=== PATIENT | female | born 1930 | race Caucasian/White ===

== ENCOUNTER 2018-08-17 13:32 | Emergency (ER) | payer MEDICARE, OTHER ==
[~2018-08-17] VITALS: Ht 147.3 cm; Wt 71.0 kg
[~2018-08-17 13:32] MED LIST: BENICAR20 MG OR; DIOVAN80 MG; DIOVAN80 MG PO; KLOR-CON 1010 MEQ OR; LEVOTHYROXIN75 MC1 PO; LIPITOR10 MG OR; MULT VITAMI1 PO; SIMVASTATIN20 MG PO; VENLAFAXINE HCL75 M1 PO
[2018-08-17 14:02] VITALS: BP 115/63
[2018-08-17] MEDS ORDERED: FISH OIL1200 M1 PO (14:05)
== END 2018-08-17 15:20 | disposition home or self-care (01) ==
LOC: ED 13:32
PROC: 2W3DX1Z Immobilization of Left Lower Arm using Splint (ICD-10-PCS; principal; 2018-08-17)
DX: S52.502A Unspecified fracture of the lower end of left radius, initial encounter for closed fracture (principal); S00.03XA Contusion of scalp, initial encounter; I10 Essential (primary) hypertension; E03.9 Hypothyroidism, unspecified; C88.0 Waldenstrom macroglobulinemia; W01.0XXA Fall on same level from slipping, tripping and stumbling without subsequent striking against object, initial encounter; Y92.009 Unspecified place in unspecified non-institutional (private) residence as the place of occurrence of the external cause